=== PATIENT | male | born 1980 | race African-American/Black ===

== ENCOUNTER 2017-04-22 13:33 | Emergency (ER) | payer OTHER ==
[~2017-04-22] VITALS: Ht 180.3 cm; Wt 83.9 kg
--- NOTE | ~2017-04-22 | EKG ---
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1980 Requested By: Gaby Viramontes Order Number: [id number] MD: Pedro Luis Mosquera Measurements Intervals [place] Rate: 97 P: 75 GA: 150 QRS: 20 QRSD: 85 T: 20 QT: 346 QTc: 440 Interpretive Statements Sinus rhythm Left ventricular hypertrophy Baseline wander in lead(s) V2 No previous ECG available for comparison Electronically Signed On 04-23-2017 10:58:28 CDT by Pedro Luis Mosquera [email or web address] <ELECTRONICALLY SIGNED> By: Pedro Luis Mosquera MD, [facility] 04/23/17 1058 [id number] Pedro Luis Mosquera MD, FACC /EPI
[2017-04-22] MEDS ORDERED: ZYRTEC 10 MG TA10 MG PO (13:50)
[2017-04-22 14:06] LABS: ABSOLUTE NEUTROPHILS 3.4 thou/uL (1.4-8.2); BASOPHILS 0.5 % (0.0-2.0); EOSINOPHILS 4.4 % (0.0-3.0); HEMATOCRIT 42.8 % (42.0-52.0); HEMOGLOBIN 14.3 gm/dL (14.0-18.0); LYMPHOCYTES 39.3 % (24.0-44.0); MANUAL DIFF NO; MCH 29.4 pg (26.0-34.0); MCHC 33.4 g/dL (28.0-37.0); MONOCYTES 7.4 % (1.0-8.0); PLATELET COUNT 189 thou/uL (150-400); POLYS 48.4 % (36.0-66.0); RBC 4.86 mil/uL (4.50-6.00); RDW 13.7 % (10.5-14.5); WBC 7.1 thou/uL (4.0-11.0)
[2017-04-22 14:16] LABS: ANION GAP 12 mmol/L (7-16); BUN 11 mg/dL (7-18); CALCIUM 9.5 mg/dL (8.5-10.1); CHLORIDE 104 mmol/L (98-107); CO2 27 mmol/L (21-32); CREATININE 1.1 mg/dL (0.7-1.3); GLUCOSE 84 mg/dL (74-106); POTASSIUM 3.4 mmol/L (3.5-5.1); SODIUM 143 mmol/L (136-145)
[2017-04-22 14:23] LABS: TROPONIN-I < 0.04 ng/mL (<0.04-0.07)
[2017-04-22 14:25] LABS: APTT 22.2 Seconds (24.5-32.8); PROTIME 10.7 Seconds (9.3-11.4)
[2017-04-22 17:14] VITALS: BP 119/73
== END 2017-04-22 17:15 | disposition home or self-care (01) ==
LOC: ER 13:33
PROVIDERS: Emergency Medicine
DX: R07.89 Other chest pain (principal); R53.1 Weakness; F10.99 Alcohol use, unspecified with unspecified alcohol-induced disorder